=== PATIENT | male | born 1930 | race Caucasian/White ===

== ENCOUNTER 2017-04-01 19:43 | Emergency (ER) | payer MEDICARE, OTHER ==
[~2017-04-01] VITALS: Ht 170.2 cm; Wt 81.5 kg
[2017-04-01 19:46] VITALS: Ht 170.2 cm; Wt 81.5 kg
[2017-04-01 22:01] VITALS: BP 198/78; PULSE 64; RESP 20; TEMP 98.1
--- NOTE | 2017-04-01 22:19 | ERD ---
ER Documentation Chief Complaint Date/Time DATE: 04/01/17 TIME: 22:10 Chief Complaint sudden right eye redness since 1 hour ago HPI Patient is an 86-year-old male who presents with sudden onset, constant, moderate, painless redness to the right eye for 4 hours. The patient denies trauma to the eye, visual disturbance, pain. The patient has history of diabetes and hypertension, and states that he did not take his blood pressure medication this morning. ROS All systems reviewed and are negative except as per history of present illness. Allergies Allergies: Coded Allergies: No Known Allergy (Unverified , 04/01/17) PMhx/Soc Past medical history: Diabetes, hypertension Past surgical history: Laser eye surgery for unknown reason Social history: Occasional alcohol, no tobacco History of Surgery: Yes (right arm sx) Anesthesia Reaction: No Hx Neurological Disorder: No Hx Respiratory Disorders: No Hx Cardiac Disorders: Yes (htn) Hx Psychiatric Problems: No Hx Miscellaneous Medical Probl: Yes (dm) Hx Alcohol Use: No Hx Substance Use: No Hx Tobacco Use: No Smoking Status: Former smoker FmHx Family History: No coronary disease, No diabetes Physical Exam Vitals Vital Signs Date Time Temp Pulse Resp B/P Pulse Ox O2 Delivery O2 Flow Rate FiO2 04/01/17 22:01 98.1 64 20 198/78 96 Room Air 04/01/17 19:46 97.8 65 20 206/91 100 Physical Exam Const: Alert, no acute distress Head: Atraumatic Eyes: Sub-conjunctival hemorrhage to right eye. Tonometry 36 and right eye and left eye. No fluorescein uptake. Extraocular movements intact. Anterior chambers deep and quiet, no hyphema. Right eye with suspected prior iridotomy ENT: Normal External Ears, Nose and Mouth. Neck: Full range of motion..~ No meningismus. Resp: Clear to auscultation bilaterally Cardio: Regular rate and rhythm, no murmurs Skin: No petechiae or rashes Neur: Awake and alert Psych: Normal Mood and Affect Results 24 hrs Current Medications Medications (Trade) Dose Ordered Sig/Benjamín Route PRN Reason Start Time Stop Time Status Last Admin Dose Admin Fluorescein Sodium (Ysvjp-W-Ojwps) 1 strip ONCE ONCE RIGHT EYE 04/01/17 22:30 04/01/17 22:31 DC Proparacaine HCl (Alcaine 0.5%) 1 drop ONCE ONCE RIGHT EYE 04/01/17 22:30 04/01/17 22:31 DC Procedures/MDM MDM: Patient is an 86-year-old male who presents with redness to right eye. There is no visual disturbance or pain. Exam is consistent with a sub- conjunctival hemorrhage. The patient is not on blood thinners or antiplatelet agents, denies trauma, denies easy bleeding eating or bruising. He is found to have elevated intraocular pressure, and signs of a prior iridotomy, so I suspect that he has chronic glaucoma. There is no evidence of acute angle- closure. Is unclear if the patient is on any medications for this. He is unaware of his prior eye conditions, reason for prior eye surgery. I advised him and his son to call the loan manager tomorrow to arrange for close follow -up, and to return to the ER for any pain or visual disturbance. The patient also has poorly controlled hypertension, likely contributed to by poor compliance with medication. Advised patient to take his medication as prescribed, and to follow-up with his PMD in 2-3 days for blood pressure recheck. There are no symptoms to suggest acute endorgan damage related to hypertension. Departure Diagnosis: Primary Impression: Subconjunctival hemorrhage Laterality: right Qualified Code: H11.31 - Subconjunctival hemorrhage, right Additional Impression: Elevated IOP Laterality: bilateral Qualified Code: H40.053 - Elevated IOP, bilateral Condition: ANGIE Luevano MD April 01, 2017 22:19
[2017-04-01] MEDS ORDERED: FLUORESCEIN STRIP RIGHT EYE ONE (22:30)
[2017-04-01] MEDS ORDERED: PROPARACAINE 0.5% 15 ML OPH RIGHT EYE ONE (22:30)
[2017-04-01] MEDS ORDERED: LEVO88TA3 PO (23:10)
[2017-04-01] MEDS ORDERED: LANT3I SC (23:10)
[2017-04-01] MEDS ORDERED: IBUP200C11 PO (23:10)
== END 2017-04-01 23:18 | disposition home or self-care (01) ==
LOC: E/R 19:43
DX: H11.31 Conjunctival hemorrhage, right eye (principal); H40.053 Ocular hypertension, bilateral; I10 Essential (primary) hypertension; E11.9 Type 2 diabetes mellitus without complications; Z87.891 Personal history of nicotine dependence
CPT/HCPCS: 99283